=== PATIENT | female | born 1970 | race Hispanic/Latino ===

== ENCOUNTER 2017-11-14 15:44 | Emergency (ER) | payer MEDICAID, OTHER ==
[2017-11-14 16:02] VITALS: RESP 18
[2017-11-14 17:09] LABS: BASO # 0.1 K/uL (0.0-0.2); BASO % 1.1 % (0.0-2.0); EOS # 0.1 K/uL (0.0-0.7); EOS % 0.7 % (0.0-4.0); HEMOGLOBIN 15.9 g/dL (12.0-16.0); LYMPH # 3.3 K/uL (1.0-4.3); LYMPH % 25.1 % (20.0-40.0); MEAN CORPUSCULAR HEMOGLOBIN 29.7 pg (27.0-31.0); MEAN CORPUSCULAR HGB CONC 33.4 g/dL (33.0-37.0); MEAN PLATELET VOLUME 8.5 fl (7.2-11.7); MONO # 1.4 K/uL (0.0-0.8); NEUT # 8.1 K/uL (1.8-7.0); NEUT % 62.1 % (50.0-75.0); NRBC % 0.1 % (0.0-0.0); RBC 5.33 Mil/uL (3.80-5.20)
[2017-11-14 17:17] LABS: INR 2.1 (0.9-1.2); PROTHROMBIN TIME 23.8 Seconds (9.8-13.1)
[2017-11-14 17:24] LABS: ALBUMIN 4.6 g/dL (3.5-5.0); ALT/SGPT 21 U/L (9-52); AST/SGOT 23 U/L (14-36); BLOOD UREA NITROGEN 14 mg/dl (7-17); GFR AFRICAN-AMERICAN > 60; GFR NON-AFRICAN AMERICAN 54
[2017-11-14] MEDS ORDERED: K-Lyte 25meq EF Tab PO ONE ×2 (17:34→17:46)
--- NOTE | 2017-11-14 17:47 | ED PDOC ---
- Laboratory Results Result Diagrams: 11/14/17 17:00 11/14/17 17:00 - ECG O2 Sat by Pulse Oximetry: 99 (RA) Pulse Ox Interpretation: Normal Medical Decision Making Medical Decision Making: Initial Impression: Anxiety; ; Heroin abuse Initial Plan: * Alcohol serum * BETA-HCG * CMP * Drug screen, urine * Magnesium * Phosphorous * TSH * Troponin I * Crisis evaluation * Urine * Urine dipstick * CBC * PTT * PT Time: 1734 --EKG: ventricular pace rhythm; tachycardic. --Urine is positive for . --Klor-Con/EF 50meq PO and US OB transvaginal additionally ordered. Scribe Attestation: Documented by Mary Kay Wallace, acting as a scribe for Jadyn Hunter MD. Provider Scribe Attestation: All medical record entries made by the Scribe were at my direction and personally dictated by me. I have reviewed the chart and agree that the record accurately reflects my personal performance of the history, physical exam, medical decision making, and the department course for this patient. I have also personally directed, reviewed, and agree with the discharge instructions and disposition. Disposition - Disposition Forms: [employer] (Green[place]ic)
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
--- NOTE | 2017-11-14 18:20 | US ---
Indication: Early weakness Comparison: None available Technique: Ob transvaginal ultrasound Findings: The uterus measures approximately 5.0 x 3.7 x 4.1 cm. Retroverted. Cervix length measures approximately 3.0 cm. Endometrial thickness measures approximately 0.5 cm. No evidence of intrauterine gestational sac. The right ovary measures 1.8 x 1.2 x 1.2 cm. The left ovary measures 2.4 x 1.2 x 2.3 cm and contains 1.2 cm dominant follicle/cyst. Blood flow was demonstrated to both ovaries. Impression: No evidence of intrauterine gestational sac. If indeed the patient is based on serum beta HCG values, the sonographic findings represent either: Very early IUP; embryonic demise; ectopic gestation. Follow-up with serial quantitative serum beta HCG measurements and post OBGYN follow-up as clinically indicated, since ectopic gestation cannot be excluded based only on sonographic findings.
[2017-11-14 18:41] LABS: PHENCYCLIDINE, UR NEGATIVE (NEGATIVE)
[2017-11-14 18:43] LABS: BENZODIAZEPINES, UR NEGATIVE (NEGATIVE); OPIATES, UR POSITIVE (NEGATIVE)
[2017-11-14 18:44] LABS: BARBITURATES, UR NEGATIVE (NEGATIVE)
[2017-11-14 19:34] VITALS: BP 117/68; PULSE 89; TEMP 98.1
[2017-11-14 20:50] VITALS: O2SAT 99
== END 2017-11-14 19:35 | disposition home or self-care (01) ==
LOC: H.ER 15:44
DX: E87.6 Hypokalemia (principal); Z33.1 Pregnant state, incidental; Z86.59 Personal history of other mental and behavioral disorders; F17.200 Nicotine dependence, unspecified, uncomplicated; I11.0 Hypertensive heart disease with heart failure; I50.9 Heart failure, unspecified; Z95.0 Presence of cardiac pacemaker; J45.909 Unspecified asthma, uncomplicated

== ENCOUNTER 2018-09-23 17:24 | Inpatient (IN) | payer MEDICAID, OTHER ==
[2018-09-23] MEDS ORDERED: Sodium Chloride 0.9% 1,000 ML IV STA (17:48)
[2018-09-23] MEDS ORDERED: Iohexol 240 (50 ml) PO ONE (17:49)
--- NOTE | 2018-09-23 17:55 | ED PDOC ---
HPI: Abdomen Time Seen by Provider: 09/23/18 17:31 Chief Complaint (Nursing): Abdominal Pain Chief Complaint (Provider): Abd pain History Per: Patient History/Exam Limitations: no limitations Onset/Duration Of Symptoms: Days (today) Additional Complaint(s): Pt. with abd pain all over. Nausea, vomit. Had similar in the past with a blockage. Needed surgery for it. No chest pain, dyspnea, weakness. No dysuria. No fever. Past Medical History Reviewed: Nursing Documentation, Vital Signs Vital Signs: Last Vital Signs Temp 97.5 F L 09/23/18 17:31 Pulse 74 09/23/18 17:31 Resp 18 09/23/18 17:31 BP 150/99 H 09/23/18 17:31 Pulse Ox 98 09/23/18 17:31 - Medical History PMH: Asthma, Atrial Fibrillation, CHF, Depression, Hepatitis, HTN, Seizures Denies: Diabetes, HIV, Sexually Transmitted Disease - Surgical History Surgical History: Pacemaker - Family History Family History: Denies: Unknown Family Hx - Home Medications Home Medications: Ambulatory Orders Medication Instructions Recorded Azithromycin [Zithromax] 250 mg PO DAILY #8 tab 05/23/16 Prednisone [Deltasone] 40 mg PO DAILY #8 tablet 05/23/16 - Allergies Allergies/Adverse Reactions: Allergies Allergy/AdvReac Type Severity Reaction Status Date / Time No Known Allergies Allergy Verified 09/23/18 17:31 Review of Systems ROS Statement: Except As Marked, All Systems Reviewed And Found Negative Gastrointestinal: Positive for: Nausea, Vomiting, Abdominal Pain Physical Exam - Reviewed Nursing Documentation Reviewed: Yes Vital Signs Reviewed: Yes - Physical Exam Appears: Positive for: Non-toxic, No Acute Distress Head Exam: Positive for: ATRAUMATIC, NORMAL INSPECTION, NORMOCEPHALIC Skin: Positive for: Normal Color, Warm, DRY Eye Exam: Positive for: EOMI, Normal appearance, PERRL ENT: Positive for: Normal ENT Inspection Neck: Positive for: Normal, Painless ROM Cardiovascular/Chest: Positive for: Regular Rate, Rhythm Respiratory: Positive for: CNT, Normal Breath Sounds Gastrointestinal/Abdominal: Positive for: Soft, Tenderness (mild diffuse) Back: Positive for: Normal Inspection. Negative for: L CVA Tenderness, R CVA Tenderness Extremity: Positive for: Normal ROM. Negative for: Tenderness Neurologic/Psych: Positive for: Alert, Oriented - Laboratory Results Result Diagrams: 09/23/18 18:40 09/23/18 18:40 Lab Results: 12.8 wbc - ECG O2 Sat by Pulse Oximetry: 98 Pulse Ox Interpretation: Normal - Progress ED Course And Treament: IMPRESSION: 1. Findings suspicious for the presence of inflammatory bowel disease; possibly Crohn's or ulcerative colitis. Consideration could be given to correlation with lower endoscopic evaluation. 2. An apparent transition zone measuring 3.7 cm in length is identified in the posterior left abdomen with possible evolving early borderline mechanical small intestinal obstruction as described above. Serial abdominal x-ray evaluation could be considered. 3. An umbilical and infraumbilical small ventral hernias are present which each contain fat. 4. Status post cholecystectomy. 214: Stable. AAOx3. Spoke with Dr. Ayon. Will admit. Spoke with surgery resident. Will consult. Disposition - Clinical Impression Clinical Impression: Bowel obstruction, Colitis Counseled Patient/Family Regarding: Studies Performed, Diagnosis - Disposition Disposition Time: 21:52 Condition: STABLE - Pt Status Changed To: Hospital Disposition Of: Inpatient - Admit Certification Admit to Inpatient:: After my assessment, the patient will require hospitalizati on for at least two midnights. This is because of the severity of symptoms shown, intensity of services needed, and/or the medical risk in this patient being treated as an outpatient. - POA Present On Arrival: None
[2018-09-23] MEDS ORDERED: Iohexol 240 (50 ml) ONE (18:05)
[2018-09-23] MEDS ORDERED: Morphine 4 MG/ML VIAL ONE (18:05)
[2018-09-23] MEDS ORDERED: Morphine 4 MG/ML VIAL IV ONE (18:15)
[2018-09-23 19:32] LABS: BASO % 0.4 % (0.0-2.0); EOS % 0.1 % (0.0-4.0); HEMOGLOBIN 16.8 g/dL (12.0-16.0); LYMPH # 1.1 K/uL (1.0-4.3); LYMPH % 8.3 % (20.0-40.0); MEAN CELL VOLUME 90.8 fl (81.0-99.0); MEAN CORPUSCULAR HEMOGLOBIN 30.1 pg (27.0-31.0); MEAN CORPUSCULAR HGB CONC 33.1 g/dL (33.0-37.0); MONO # 0.5 K/uL (0.0-0.8); MONO % 3.9 % (0.0-10.0); NEUT # 11.2 K/uL (1.8-7.0); NEUT % 87.3 % (50.0-75.0); NRBC % 0.1 % (0.0-0.0); PLATELET COUNT 253 K/uL (130-400); RBC 5.58 Mil/uL (3.80-5.20); RED CELL DISTRIBUTION WIDTH 14.1 % (11.5-14.5); WHITE BLOOD COUNT 12.8 K/uL (4.8-10.8)
[2018-09-23 19:34] LABS: INR 2.2; PROTHROMBIN TIME 25.4 Seconds (9.8-13.1)
[2018-09-23 19:37] LABS: PARTIAL THROMBOPLASTIN TIME 49.4 Seconds (25.6-37.1)
[2018-09-23 19:39] LABS: ALBUMIN 4.5 g/dL (3.5-5.0); ALT/SGPT 18 U/L (9-52); AST/SGOT 29 U/L (14-36); BLOOD UREA NITROGEN 16 mg/dl (7-17); CALCIUM 10.1 mg/dL (8.4-10.2); GFR NON-AFRICAN AMERICAN > 60; LIPASE 50 U/L (23-300)
[2018-09-23 20:24] LABS: BANDS 3 % (0-2); LYMPHOCYTE 7 % (20-50); MONOCYTE 5 % (0-10); NEUTROPHIL 85 % (42-75); TOTAL CELLS COUNTED 100
[2018-09-23 20:25] LABS: PLATELET ESTIMATE NORMAL (NORMAL); TEARDROP CELLS SLIGHT
[2018-09-23] MEDS ORDERED: Iohexol 300 100 ML IJ ONE (21:01)
[2018-09-23] MEDS ORDERED: Sodium Chloride 0.9% 50 ML IV ONE (21:02)
[2018-09-23] MEDS ORDERED: metroNIDAZOLE 500mg/100ml NS 100 ML IV STA (21:46)
[2018-09-23] MEDS ORDERED: cefTRIAXone (Rocephin) 1 gm Inj IV ONE (21:46)
[2018-09-23] MEDS ORDERED: cefTRIAXone (Rocephin) 1 gm Inj ONE (21:55)
[2018-09-23] MEDS ORDERED: metroNIDAZOLE 500mg/100ml NS 100 ML IVPB ONE (21:56)
[2018-09-23] MEDS ORDERED: Sodium Chloride 0.9% 500 ML IV STA (21:57)
--- NOTE | 2018-09-23 22:56 | CP.PCM.CON ---
History of Present Illness - History of Present Illness History of Present Illness: General surgery consult note for Dr. Barrios Consulted for: early SBO Pt is a 47F with extensive PMH of afib on warfarin and plavix, heart failure, hepatitis C, HTN, COPD and PSH including exploratory laparotomy for SBO, incisional hernia repair with mesh, and cholecystectomy. Pt came in with diffuse abdominal pain for 2 weeks and nausea and vomiting for 1 day. Patient state that the emesis is not bloody but bilious, and the pain is a cramping sensation. Patient states that last bowel movement was a few hours ago and was soft but normal color, no blood and she is passing flatus. Patient denies any melena, hematochezia, dysuria, hematuria, chest pain, SOB, or fevers but does admit to chills. Pt also complains of lower back pain. Patient denies any sick contacts, travel outside the country, or new foods. Patient last took plavix and warfarin yesterday. PMH: afib on warfarin and plavix, heart failure, hepatitis C, HTN, COPD, "heart aneurysm" PSH: exploratory laparotomy for SBO, incisional hernia repair with mesh, defib rilator insertion x2, pericardial window, and cholecystectomy ALL: NKDA Social: smoked 1PPD for 10 years, denies ETOH use, prior IV heroin use quit 6 months ago Review of Systems - Review of Systems All systems: reviewed and no additional remarkable complaints except (as per HPI) Past Patient History - Past Medical History & Family History Past Medical History?: Yes Past Family History: Reviewed and not pertinent - Past Social History Smoking Status: Former Smoker Alcohol: None Drugs: Opiates (IV heroin--quit 03/2018) Home Situation {Lives}: With Family - CARDIAC Hx Atrial Fibrillation: Yes Hx Congestive Heart Failure: Yes Hx Hypertension: Yes Hx Pacemaker: Yes - PULMONARY Hx Asthma: Yes Hx Chronic Obstructive Pulmonary Disease (COPD): Yes - NEUROLOGICAL Hx Seizures: Yes - HEMATOLOGICAL/ONCOLOGICAL Hx Hepatitis C: Yes Hx Human Immunodeficiency Virus (HIV): No - MUSCULOSKELETAL/RHEUMATOLOGICAL Hx Musculoskeletal Disorders: No - GASTROINTESTINAL Hx Gall Bladder Disease: Yes (s/p cholecystectomy) Other/Comment: small bowel obstruction s/p exploratory laparotomy - GENITOURINARY/GYNECOLOGICAL Hx Sexually Transmitted Disorders: No - PSYCHIATRIC Hx Depression: Yes - SURGICAL HISTORY Hx Surgeries: Yes Hx Cholecystectomy: Yes Hx Herniorrhaphy: Yes (abdominal incisional hernia repair) Other/Comment: pericardial window, insertion of defibrillator x2, exploratory laparotomy for SBO - ANESTHESIA Hx Anesthesia: Yes Hx Anesthesia Reactions: No Meds Allergies/Adverse Reactions: Allergies Allergy/AdvReac Type Severity Reaction Status Date / Time No Known Allergies Allergy Verified 09/23/18 17:31 - Medications Medications: Current Medications Sodium Chloride (Sodium Chloride 0.9%) 500 mls @ 100 mls/hr IV .Q5H STA Stop: 09/24/18 02:56 Last Admin: 09/23/18 22:02 Dose: 100 mls/hr Physical Exam - Constitutional Appears: Well, Non-toxic, No Acute Distress - Head Exam Head Exam: ATRAUMATIC, NORMOCEPHALIC - Eye Exam Eye Exam: Normal appearance. absent: Conjunctival injection, Scleral icterus - ENT Exam ENT Exam: Mucous Membranes Dry, Normal Oropharynx - Respiratory Exam Respiratory Exam: NORMAL BREATHING PATTERN. absent: Accessory Muscle Use, Respiratory Distress - Cardiovascular Exam Cardiovascular Exam: RRR - GI/Abdominal Exam GI & Abdominal Exam: Distended (mild distention), Soft. absent: Rebound, Rigid, Tenderness - Extremities Exam Extremities exam: Positive for: pedal pulses present. Negative for: calf tenderness, tenderness - Back Exam Back exam: absent: CVA tenderness (L), CVA tenderness (R) - Neurological Exam Neurological exam: Alert, Oriented x3 - Psychiatric Exam Psychiatric exam: Normal Affect, Normal Mood - Skin Skin Exam: Dry, Normal Color, Warm Results - Vital Signs Recent Vital Signs: Last Vital Signs Temp 97.5 F L 09/23/18 17:31 Pulse 74 09/23/18 17:31 Resp 18 09/23/18 17:31 BP 150/99 H 09/23/18 17:31 Pulse Ox 98 09/23/18 21:52 - Labs Result Diagrams: 09/23/18 18:40 09/23/18 18:40 Labs: Laboratory Results - last 24 hr 09/23/18 09/23/18 09/23/18 18:40 18:40 18:40 WBC 12.8 H RBC 5.58 H Hgb 16.8 H Hct 50.7 H MCV 90.8 MCH 30.1 MCHC 33.1 RDW 14.1 Plt Count 253 MPV 9.0 Neut % (Auto) 87.3 H Lymph % (Auto) 8.3 L [place] % (Auto) 3.9 Eos % (Auto) 0.1 Baso % (Auto) 0.4 Neut # (Auto) 11.2 H Lymph # (Auto) 1.1 [place] # (Auto) 0.5 Eos # (Auto) 0.0 Baso # (Auto) 0.0 Neutrophils % (Manual) 85 H Band Neutrophils % 3 H Lymphocytes % (Manual) 7 L Monocytes % (Manual) 5 Platelet Estimate Normal Tear Drop Cells Slight PT 25.4 H INR 2.2 APTT 49.4 H Sodium 141 Potassium 3.9 Chloride 95 L Carbon Dioxide 32 H Anion Gap 18 BUN 16 Creatinine 0.8 Est GFR ( Amer) > 60 Est GFR (Non-Af Amer) > 60 Random Glucose 115 H Calcium 10.1 Total Bilirubin 0.7 AST 29 ALT 18 Alkaline Phosphatase 130 H Total Protein 9.1 H Albumin 4.5 Globulin 4.6 H Albumin/Globulin Ratio 1.0 Lipase 50 - Imaging and Cardiology CT scan - abdomen Status: Image reviewed by me, Report reviewed by me CT scan - pelvis Status: Image reviewed by me, Report reviewed by me Assessment & Plan - Assessment and Plan (Free Text) Assessment: 47F with PSH of exploratory laparotomy for SBO, cholecystectomy, and subsequent incisional hernia repair with mesh with nausea and vomiting, CT with possible early SBO Plan: NPO Insert NGT if patient has more nausea and vomiting--patient refusing at this time IVF IV antibiotics per primary PRN pain and nausea medication Hold warfarin and plavix until need for surgical intervention is ruled out--may give therapeutic lovenox or heparin Trend labs--replete electrolytes as needed Encourage ambulation, incentive spirometer, and SCD use Will monitor closely Discussed with Dr. Barrios, who agrees with above Evelina Sepulveda, PGY2
[2018-09-23] MEDS ORDERED: Potassium Ch 20mEq in D5-1/2NS 1,000 ML IV SCH (23:00)
--- NOTE | 2018-09-23 23:41 | CP.PCM.HP ---
<Steven Loya - Last Filed: 09/23/18 23:07> History of Present Illness - History of Present Illness History of Present Illness: 47 y/o F with a PMHx of HTN, Atrial Fibrillation, CHF, hepatitis C, IVDA and SBO presented to ED complaining of generalized abdominal pain that began 2 weeks ago and aggravated yesterday. Pain is described as cramping, severe, constant and progressively aggravated the most last night. Pt also reports nausea and vomiting since this morning, >5 episodes of bilious non-bloody vomiting; pt also had loose stools since this morning, ~5 episodes, non-bloody, non-mucous. Pt is passing gasses, last meal was last night. NO recent travel and NO ill contact. Pt reports similar episode in the past due to intestine blockage that required surgery. Pt denies fever, visual disturbances, recent trauma, dizziness, chest pain, SOB, rash. LMP 1 year ago. PCP: none Engraving Operator: Dr Lillian Smith (Next Appt on 09/28/18) NKDA Medications: Plavix, Warfarin, Torpol, Lasix, Methadone PMHx: HTN, CHF, Afib, IVDA, Hepatitis C, on [facility] PSHX: hernia repair with mesh, defibrillator placement x2, pericardial window, ?exploratory laparotomy for SBO. (As per CT abdomen: S/P Cholecystectpmy) FHx: Mother has lung cancer. Brother and mother have had open heart surgeries. SHx: Pt smokes 1ppd of cigarettes daily for more than 10 years. NO alcohol. IV Heroin use, last use was >6 months ago. At ED: --CBC showed a WBC of 12.8-high, Hgb 16.8-high. --Coag profile: PT/INR 25.4/2.2-therapeutic range, aPTT 49.4-high. --CMP: bicarbonate 32, Alk phos 130-high --Serum Lipase negative. --CT Abdomen: suspicious for IBD; possibly Crohn's vs ulcerative colitis; early borderline mechanical small intestinal obstruction in posterior left abdomen. An umbilical and infraumbilical small ventral hernias containing fat. S/P Cholecystectomy. --Morphine 4mg, Zofran 4mg, Ceftriaxone 1gr, and Metronidazole were administered. Present on Admission - Present on Admission Any Indicators Present on Admission: No Review of Systems - Constitutional Constitutional: absent: Fever - EENT Nose/Mouth/Throat: absent: Nasal Congestion, Sore Throat, Neck Pain, Neck Mass - Cardiovascular Cardiovascular: absent: Chest Pain, Chest Pain at Rest, Dyspnea, Leg Edema - Respiratory Respiratory: absent: Cough, Dyspnea, Hemoptysis, Wheezing - Gastrointestinal Gastrointestinal: Abdominal Pain, Diarrhea, Nausea, Vomiting. absent: Dysphagia, Hematemesis, Odynophagia - Genitourinary Genitourinary: absent: Dysuria, Hematuria, Urinary Frequency Past Patient History - Past Medical History & Family History Past Medical History?: Yes Past Family History: Reviewed and not pertinent - Past Social History Smoking Status: Former Smoker Alcohol: None Drugs: Opiates (IV heroin--quit 03/2018) Home Situation {Lives}: With Family - CARDIAC Hx Atrial Fibrillation: Yes Hx Congestive Heart Failure: Yes Hx Hypertension: Yes Hx Pacemaker: Yes - PULMONARY Hx Asthma: Yes Hx Chronic Obstructive Pulmonary Disease (COPD): Yes - NEUROLOGICAL Hx Seizures: Yes - HEMATOLOGICAL/ONCOLOGICAL Hx Hepatitis C: Yes Hx Human Immunodeficiency Virus (HIV): No - MUSCULOSKELETAL/RHEUMATOLOGICAL Hx Musculoskeletal Disorders: No - GASTROINTESTINAL Hx Gall Bladder Disease: Yes (s/p cholecystectomy) Other/Comment: small bowel obstruction s/p exploratory laparotomy - GENITOURINARY/GYNECOLOGICAL Hx Sexually Transmitted Disorders: No - PSYCHIATRIC Hx Depression: Yes - SURGICAL HISTORY Hx Surgeries: Yes Hx Cholecystectomy: Yes Hx Herniorrhaphy: Yes (abdominal incisional hernia repair) Other/Comment: pericardial window, insertion of defibrillator x2, exploratory laparotomy for SBO - ANESTHESIA Hx Anesthesia: Yes Hx Anesthesia Reactions: No Meds Allergies/Adverse Reactions: Allergies Allergy/AdvReac Type Severity Reaction Status Date / Time No Known Allergies Allergy Verified 09/23/18 17:31 Physical Exam - Constitutional Appears: No Acute Distress - Head Exam Head Exam: ATRAUMATIC, NORMAL INSPECTION - Eye Exam Eye Exam: EOMI - ENT Exam ENT Exam: Mucous Membranes Moist - Neck Exam Neck exam: Positive for: Full Rom, Normal Inspection - Respiratory Exam Respiratory Exam: NORMAL BREATHING PATTERN. absent: Rhonchi, Wheezes, Respiratory Distress - Cardiovascular Exam Cardiovascular Exam: REGULAR RHYTHM, +S1, +S2 - GI/Abdominal Exam GI & Abdominal Exam: Distended (mild), Normal Bowel Sounds, Soft. absent: Guarding, Rebound, Rigid, Tenderness - Extremities Exam Extremities exam: Positive for: full ROM. Negative for: calf tenderness, pedal edema - Back Exam Back exam: absent: CVA tenderness (L), CVA tenderness (R) - Neurological Exam Neurological exam: Alert, Oriented x3 Results - Vital Signs Recent Vital Signs: Last Vital Signs Temp 97.5 F L 09/23/18 17:31 Pulse 74 09/23/18 17:31 Resp 18 09/23/18 17:31 BP 150/99 H 09/23/18 17:31 Pulse Ox 98 09/23/18 21:52 - Labs Result Diagrams: 09/23/18 18:40 09/23/18 18:40 Labs: Laboratory Results - last 24 hr 09/23/18 09/23/18 09/23/18 18:40 18:40 18:40 WBC 12.8 H RBC 5.58 H Hgb 16.8 H Hct 50.7 H MCV 90.8 MCH 30.1 MCHC 33.1 RDW 14.1 Plt Count 253 MPV 9.0 Neut % (Auto) 87.3 H Lymph % (Auto) 8.3 L [place] % (Auto) 3.9 Eos % (Auto) 0.1 Baso % (Auto) 0.4 Neut # (Auto) 11.2 H Lymph # (Auto) 1.1 [place] # (Auto) 0.5 Eos # (Auto) 0.0 Baso # (Auto) 0.0 Neutrophils % (Manual) 85 H Band Neutrophils % 3 H Lymphocytes % (Manual) 7 L Monocytes % (Manual) 5 Platelet Estimate Normal Tear Drop Cells Slight PT 25.4 H INR 2.2 APTT 49.4 H Sodium 141 Potassium 3.9 Chloride 95 L Carbon Dioxide 32 H Anion Gap 18 BUN 16 Creatinine 0.8 Est GFR ( Amer) > 60 Est GFR (Non-Af Amer) > 60 Random Glucose 115 H Calcium 10.1 Total Bilirubin 0.7 AST 29 ALT 18 Alkaline Phosphatase 130 H Total Protein 9.1 H Albumin 4.5 Globulin 4.6 H Albumin/Globulin Ratio 1.0 Lipase 50 Assessment & Plan - Assessment and Plan (Free Text) Assessment: 47 y/o F with a PMHx of HTN, Atrial Fibrillation on Warfarin and Plavix, CHF, hepatitis C, IVDA and SBO admitted for evaluation and management of early small bowel obstruction vs colitis. --CT Abdomen: suspicious for IBD; possibly Crohn's vs ulcerative colitis; early borderline mechanical small intestinal obstruction in posterior left abdomen. An umbilical and infraumbilical small ventral hernias containing fat. S/P Cholecystectomy. PLAN: >Early SBO/Colitis/ Inflammatory Bowel disease --Afebrile, stable --Increased WBC. --NPO, IV fluids: 20mEQ KCl-NS at 125 mL/hr. --Zofran 4mg IV PRN --Toradol 15mg and 30mg for pain management. --General Surgery consult, Dr Barrios. --Empiric antibiotics: Ciprofloxacin IV and IV Metronidazole >Atrial Fibrillation --Pacemaker in place --Electrocardiogram ordered --On Warfarin and Plavix --Hold PO medications for now. >Chronic Heart Failure --Last Echocardiogram 8 months ago, unremarkble results as per patient. --Hold PO medications. >Hx of heroin use --On [facility]. >Hepatitis C --Currently not on treatment >Essential Hypertension --NPO --PO medications on hold. >DVT Prophylaxis --SCDs for now --On Warfarin and Plavix. - Date & Time Date: 09/24/18 Time: 23:00 <Velma Ayon - Last Filed: 09/24/18 04:40> Results - Vital Signs Recent Vital Signs: Last Vital Signs Temp 98 F 09/24/18 00:32 Pulse 69 09/24/18 00:32 Resp 20 09/24/18 00:32 BP 112/77 09/24/18 00:32 Pulse Ox 90 L 09/24/18 00:32 - Labs Result Diagrams: 09/23/18 18:40 09/23/18 18:40 Labs: Laboratory Results - last 24 hr 09/23/18 09/23/18 09/23/18 18:40 18:40 18:40 WBC 12.8 H RBC 5.58 H Hgb 16.8 H Hct 50.7 H MCV 90.8 MCH 30.1 MCHC 33.1 RDW 14.1 Plt Count 253 MPV 9.0 Neut % (Auto) 87.3 H Lymph % (Auto) 8.3 L [place] % (Auto) 3.9 Eos % (Auto) 0.1 Baso % (Auto) 0.4 Neut # (Auto) 11.2 H Lymph # (Auto) 1.1 [place] # (Auto) 0.5 Eos # (Auto) 0.0 Baso # (Auto) 0.0 Neutrophils % (Manual) 85 H Band Neutrophils % 3 H Lymphocytes % (Manual) 7 L Monocytes % (Manual) 5 Platelet Estimate Normal Tear Drop Cells Slight PT 25.4 H INR 2.2 APTT 49.4 H Sodium 141 Potassium 3.9 Chloride 95 L Carbon Dioxide 32 H Anion Gap 18 BUN 16 Creatinine 0.8 Est GFR ( Amer) > 60 Est GFR (Non-Af Amer) > 60 Random Glucose 115 H Calcium 10.1 Total Bilirubin 0.7 AST 29 ALT 18 Alkaline Phosphatase 130 H Total Protein 9.1 H Albumin 4.5 Globulin 4.6 H Albumin/Globulin Ratio 1.0 Lipase 50 Attending/Attestation - Attestation I have personally seen and examined this patient.: Yes I have fully participated in the care of the patient.: Yes I have reviewed all pertinent clinical information: Yes Notes (Text): 09/24/18 04:39 47F PMH IVDA, CHF, S/P PPM, AFIB on Warfarin, Hepatitis, hx SBO admitted for generalized cramping abd pain, NBNB emesis x5 with loose stools. Same pain as last time she had an SBO that required sx. CT showed SBO and colitis/UC. Surgery consulted. NPO, maintenance fluids, Cipro/Flagyl for colitis. Agree with findings and plan as above.
[2018-09-24] MEDS ORDERED: Potassium Ch 20mEq in D5-1/2NS 1,000 ML IV SCH (00:15)
[2018-09-24] MEDS: Potassium Chl 20 mEq in NS 1,000 ML IV SCH ×3 (00:48→15:59)
[2018-09-24] MEDS ORDERED: metroNIDAZOLE 500mg/100ml NS 100 ML IVPB SCH (01:00)
[2018-09-24] MEDS: metroNIDAZOLE 500mg/100ml NS 100 ML IVPB SCH ×2 (04:56→15:39)
[2018-09-24 06:58] LABS: ALBUMIN 4.1 g/dL (3.5-5.0); ALT/SGPT 15 U/L (9-52); AST/SGOT 26 U/L (14-36); BLOOD UREA NITROGEN 18 mg/dl (7-17); CALCIUM 9.2 mg/dL (8.4-10.2); GFR NON-AFRICAN AMERICAN > 60
[2018-09-24 07:16] LABS: HEMOGLOBIN 16.2 g/dL (12.0-16.0); MEAN CELL VOLUME 97.5 fl (81.0-99.0); MEAN CORPUSCULAR HEMOGLOBIN 30.5 pg (27.0-31.0); MEAN CORPUSCULAR HGB CONC 31.3 g/dL (33.0-37.0); RBC 5.32 Mil/uL (3.80-5.20); RED CELL DISTRIBUTION WIDTH 14.7 % (11.5-14.5); WHITE BLOOD COUNT 15.6 K/uL (4.8-10.8)
--- NOTE | 2018-09-24 08:54 | CP.PCM.PN ---
Subjective - Date & Time of Evaluation Date of Evaluation: 09/24/18 Time of Evaluation: 08:51 - Subjective Subjective: SURGERY NOTE FOR DR. ANDERSON 47F seen and examined at bedside. Patient states pain is improving, denies nausea or vomiting. Denies fevers or chills. States she is passing gas, denies bowel movement. Objective - Vital Signs/Intake and Output Vital Signs (last 24 hours): Temp Pulse Resp BP Pulse Ox 98 F 69 20 112/77 90 L 09/24/18 00:32 09/24/18 00:32 09/24/18 00:32 09/24/18 00:32 09/24/18 00:32 - Medications Medications: Current Medications Famotidine (Pepcid) 20 mg IVP DAILY NICOLASA Ciprofloxacin (Cipro 400mg/200ml Dsw) 400 mg in 200 mls @ 200 mls/hr IVPB Q12 NICOLASA; Protocol Potassium Chloride/Sodium Chloride (Potassium Chl 20 Meq In Ns) 1,000 mls @ 125 mls/hr IV .Q8H NICOLASA Stop: 09/24/18 23:59 Last Admin: 09/24/18 00:48 Dose: 125 mls/hr Metronidazole (Flagyl 500mg/100ml Ns) 100 mls @ 100 mls/hr IVPB Q8H NICOLASA; Protocol Last Admin: 09/24/18 04:56 Dose: 100 mls/hr Ketorolac Tromethamine (Toradol) 30 mg IM Q6 PRN PRN Reason: Pain, moderate (4-7) Last Admin: 09/24/18 07:03 Dose: 30 mg Ketorolac Tromethamine (Toradol) 15 mg IVP Q6 PRN PRN Reason: Pain, Mild (1-3) Ondansetron HCl (Zofran Inj) 4 mg IVP Q4 PRN PRN Reason: Nausea/Vomiting Last Admin: 09/24/18 07:04 Dose: 4 mg - Labs Labs: 09/24/18 06:32 09/24/18 06:32 PT 25.4 Seconds (9.8-13.1) H 09/23/18 18:40 INR 2.2 09/23/18 18:40 APTT 49.4 Seconds (25.6-37.1) H 09/23/18 18:40 - Constitutional Appears: Non-toxic, No Acute Distress - Respiratory Exam Respiratory Exam: Clear to Ausculation Bilateral, NORMAL BREATHING PATTERN - Cardiovascular Exam Cardiovascular Exam: REGULAR RHYTHM, +S1, +S2 - GI/Abdominal Exam GI & Abdominal Exam: Distended, Soft, Tenderness. absent: Firm, Guarding, Rigid, Rebound - Extremities Exam Extremities Exam: absent: Pedal Edema, Tenderness - Neurological Exam Neurological Exam: Alert, Awake Assessment and Plan - Assessment and Plan (Free Text) Assessment: 47F with partial SBO Plan: NPO IVF Serial abdominal exams F/u Abdominal X-ray Further recs discuss with Dr. Denis Hyman, PGY3
[2018-09-24] MEDS ORDERED: Ciprofloxacin 400mg/200ml D5W 400 MG/200 ML BAG IVPB SCH (09:00)
--- NOTE | 2018-09-24 09:16 | CARD ---
APPROVED REPORT Date of service: 09/23/2018 EKG Measurement Heart [id number] <Conclusion> Atrial-sensed ventricular-paced rhythm with occasional premature ventricular complexes Biventricular pacemaker detected Abnormal ECG
--- NOTE | 2018-09-24 10:00 | CP.PCM.PN ---
Subjective - Date & Time of Evaluation Date of Evaluation: 09/24/18 Time of Evaluation: 09:56 - Subjective Subjective: 47 y/o F patient seen and examined at the bedside for SBO. Paatient was sleeping comfortably in bed and NAD. Patient is AAO X 3. Patient states that she still didn't have any bowel motion today but she passes any gas. She denies any ove rnight nausea or vomiting. She denies any overnight acute events. She denies any overnight abdominal pain. SHe denies any F/C/CP or SOB. Objective - Vital Signs/Intake and Output Vital Signs (last 24 hours): Temp Pulse Resp BP Pulse Ox 98.7 F 69 18 107/72 93 L 09/24/18 09:00 09/24/18 09:00 09/24/18 09:00 09/24/18 09:00 09/24/18 09:00 - Medications Medications: Current Medications Famotidine (Pepcid) 20 mg IVP DAILY NICOLASA Ciprofloxacin (Cipro 400mg/200ml Dsw) 400 mg in 200 mls @ 200 mls/hr IVPB Q12 NICOLASA; Protocol Potassium Chloride/Sodium Chloride (Potassium Chl 20 Meq In Ns) 1,000 mls @ 125 mls/hr IV .Q8H NICOLASA Stop: 09/24/18 23:59 Last Admin: 09/24/18 00:48 Dose: 125 mls/hr Metronidazole (Flagyl 500mg/100ml Ns) 100 mls @ 100 mls/hr IVPB Q8H NICOLASA; Protocol Last Admin: 09/24/18 04:56 Dose: 100 mls/hr Ketorolac Tromethamine (Toradol) 30 mg IM Q6 PRN PRN Reason: Pain, moderate (4-7) Last Admin: 09/24/18 07:03 Dose: 30 mg Ketorolac Tromethamine (Toradol) 15 mg IVP Q6 PRN PRN Reason: Pain, Mild (1-3) Ondansetron HCl (Zofran Inj) 4 mg IVP Q4 PRN PRN Reason: Nausea/Vomiting Last Admin: 09/24/18 07:04 Dose: 4 mg - Labs Labs: 09/24/18 06:32 09/24/18 06:32 PT 25.4 Seconds (9.8-13.1) H 09/23/18 18:40 INR 2.2 09/23/18 18:40 APTT 49.4 Seconds (25.6-37.1) H 09/23/18 18:40 - Constitutional Appears: Non-toxic, No Acute Distress - Head Exam Head Exam: ATRAUMATIC, NORMOCEPHALIC - Eye Exam Eye Exam: EOMI, Normal appearance, PERRL Pupil Exam: NORMAL ACCOMODATION, PERRL - ENT Exam ENT Exam: Mucous Membranes Moist, Normal Exam - Neck Exam Neck Exam: Full ROM, Normal Inspection - Respiratory Exam Respiratory Exam: Clear to Ausculation Bilateral, NORMAL BREATHING PATTERN - Cardiovascular Exam Cardiovascular Exam: REGULAR RHYTHM, +S1, +S2 - GI/Abdominal Exam GI & Abdominal Exam: Distended, Soft, Hypoactive Bowel Sounds - Extremities Exam Extremities Exam: Normal Capillary Refill - Back Exam Back Exam: NORMAL INSPECTION - Neurological Exam Neurological Exam: Alert, Awake, Oriented x3 Neuro motor strength exam: Left Upper Extremity: 5, Right Upper Extremity: 5, Left Lower Extremity: 5, Right Lower Extremity: 5 - Psychiatric Exam Psychiatric exam: Normal Affect, Normal Mood - Skin Skin Exam: Dry, Intact, Normal Color, Warm Assessment and Plan - Assessment and Plan (Free Text) Assessment: 47 y/o F with a PMHx of HTN, Atrial Fibrillation on Warfarin and Plavix, CHF, hepatitis C, IVDA and SBO admitted for evaluation and management of early small bowel obstruction vs colitis. --CT Abdomen: suspicious for IBD; possibly Crohn's vs ulcerative colitis; early borderline mechanical small intestinal obstruction in posterior left abdomen. An umbilical and infraumbilical small ventral hernias containing fat. S/P Cholecystectomy. Plan: >Early SBO/Colitis/ Inflammatory Bowel disease --Afebrile, stable --Increased WBC; 15.6. --C/W: NPO, IV fluids: 20mEQ KCl-NS at 125 mL/hr. --C/WZofran 4mg IV PRN --C/W Toradol 15mg and 30mg for pain management. --General Surgery consult, Dr Barrios, Reccs appreciated. --C/W Empiric antibiotics: Ciprofloxacin IV and IV Metronidazole. --Monitor abdominal sounds, gases and abdominal distension. >Atrial Fibrillation --Pacemaker in place --Electrocardiogram ordered --Patient is on Warfarin and Plavix. --C/W holding PO medications for now. >Chronic Heart Failure --Last Echocardiogram 8 months ago, unremarkble results as per patient. --Hold PO medications. >Hx of heroin use --Patient is on [facility]. >Hepatitis C --Currently not on treatment. >Essential Hypertension --NPO. --PO medications are on hold. >DVT Prophylaxis --SCDs for now --Patient is on Warfarin and Plavix.
--- NOTE | 2018-09-24 10:18 | RAD ---
Date of service: 09/24/2018 HISTORY: SBO, F/U PO contrast from CT COMPARISON: None available. FINDINGS: BOWEL: Nonspecific bowel gas pattern. Enteric contrast not discretely visualized. BONES: Normal. OTHER FINDINGS: Right upper quadrant surgical clips.. IMPRESSION: Nonspecific bowel gas pattern. Enteric contrast not discretely visualized.
--- NOTE | 2018-09-24 11:24 | CT ---
Date of service: 09/23/2018 PROCEDURE: CT Abdomen and Pelvis with contrast HISTORY: abd pain COMPARISON: None. TECHNIQUE: Contrast dose: 90 mL Omnipaque 300 Radiation dose: Total exam DLP = 404.83 mGy-cm. This CT exam was performed using one or more of the following dose reduction techniques: Automated exposure control, adjustment of the mA and/or kV according to patient size, and/or use of iterative reconstruction technique. FINDINGS: LOWER THORAX: Cardiomegaly. Implanted cardiac device leads. LIVER: Hepatic steatosis. No gross lesion or ductal dilatation. GALLBLADDER AND BILE DUCTS: Prior cholecystectomy with surgical clips in place. PANCREAS: Unremarkable. No gross lesion or ductal dilatation. SPLEEN: Unremarkable. ADRENALS: Unremarkable. No mass. KIDNEYS AND URETERS: Unremarkable. No hydronephrosis. No solid mass. VASCULATURE: Unremarkable. No aortic aneurysm. No aortic atherosclerotic calcification or mural plaque present. BOWEL: Prominently distended small-bowel loops without discrete dilatation and long segment fecalization of small bowel contents with transition in the right lower quadrant (series 3, image 118). No gross mural thickening. APPENDIX: Normal appendix. PERITONEUM: Small fat containing supraumbilical hernia. No free fluid. No free air. LYMPH NODES: Unremarkable. No enlarged lymph nodes. BLADDER: Unremarkable. REPRODUCTIVE: Unremarkable. BONES: No acute fracture. OTHER FINDINGS: None. IMPRESSION: Distended small bowel loops with long segment fecalization of small bowel contents suspicious for developing small bowel obstruction. No discrete evidence for inflammatory bowel disease. Terminal ileum and colon are collapsed without evidence of wall thickening. Haustra markings cannot be discretely evaluated when bowel is collapsed. Additional findings as above.
--- NOTE | 2018-09-24 12:38 | RAD ---
Date of service: 09/24/2018 PROCEDURE: CHEST RADIOGRAPH, 1 VIEW HISTORY: rhonchi COMPARISON: 05/23/2016 FINDINGS: LUNGS: Clear. PLEURA: No pneumothorax or pleural fluid seen. CARDIOVASCULAR: No aortic atherosclerotic calcification present. Normal heart size. No congestive change. AICD noted. OSSEOUS STRUCTURES: No significant abnormalities. VISUALIZED UPPER ABDOMEN: Normal. OTHER FINDINGS: None. IMPRESSION: No active disease.
--- NOTE | 2018-09-24 14:24 | CP.PCM.DIS ---
Provider - Provider Date of Admission: 09/23/18 21:45 Attending physician: Velma Ayon DO Consults: 09/23/18 21:46 Surgery [General Surgery Consult] Stat Comment: Consulting Provider: Santhosh Barrios Consulting Physician: Santhosh Barrios Reason for Consult: bowel obstruction Time Spent in preparation of Discharge (in minutes): 30 Hospital Course - Lab Results Lab Results: Most Recent Lab Values WBC 15.6 K/uL (4.8-10.8) H 09/24/18 06:32 RBC 5.32 Mil/uL (3.80-5.20) H 09/24/18 06:32 Hgb 16.2 g/dL (12.0-16.0) H 09/24/18 06:32 Hct 51.9 % (34.0-47.0) H 09/24/18 06:32 MCV 97.5 fl (81.0-99.0) D 09/24/18 06:32 MCH 30.5 pg (27.0-31.0) 09/24/18 06:32 MCHC 31.3 g/dL (33.0-37.0) L 09/24/18 06:32 RDW 14.7 % (11.5-14.5) H 09/24/18 06:32 Plt Count 229 K/uL (130-400) 09/24/18 06:32 MPV 9.0 fl (7.2-11.7) 09/23/18 18:40 Neut % (Auto) 87.3 % (50.0-75.0) H 09/23/18 18:40 Lymph % (Auto) 8.3 % (20.0-40.0) L 09/23/18 18:40 [place] % (Auto) 3.9 % (0.0-10.0) 09/23/18 18:40 Eos % (Auto) 0.1 % (0.0-4.0) 09/23/18 18:40 Baso % (Auto) 0.4 % (0.0-2.0) 09/23/18 18:40 Neut # (Auto) 11.2 K/uL (1.8-7.0) H 09/23/18 18:40 Lymph # (Auto) 1.1 K/uL (1.0-4.3) 09/23/18 18:40 [place] # (Auto) 0.5 K/uL (0.0-0.8) 09/23/18 18:40 Eos # (Auto) 0.0 K/uL (0.0-0.7) 09/23/18 18:40 Baso # (Auto) 0.0 K/uL (0.0-0.2) 09/23/18 18:40 Neutrophils % (Manual) 85 % (42-75) H 09/23/18 18:40 Band Neutrophils % 3 % (0-2) H 09/23/18 18:40 Lymphocytes % (Manual) 7 % (20-50) L 09/23/18 18:40 Monocytes % (Manual) 5 % (0-10) 09/23/18 18:40 Platelet Estimate Normal (NORMAL) 09/23/18 18:40 Tear Drop Cells Slight 09/23/18 18:40 PT 25.4 Seconds (9.8-13.1) H 09/23/18 18:40 INR 2.2 09/23/18 18:40 APTT 49.4 Seconds (25.6-37.1) H 09/23/18 18:40 Sodium 142 mmol/l (132-148) 09/24/18 06:32 Potassium 4.9 MMOL/L (3.6-5.0) 09/24/18 06:32 Chloride 100 mmol/L (98-107) 09/24/18 06:32 Carbon Dioxide 29 mmol/L (22-30) 09/24/18 06:32 Anion Gap 18 (10-20) 09/24/18 06:32 BUN 18 mg/dl (7-17) H 09/24/18 06:32 Creatinine 0.9 mg/dl (0.7-1.2) 09/24/18 06:32 Est GFR ( Amer) > 60 09/24/18 06:32 Est GFR (Non-Af Amer) > 60 09/24/18 06:32 Random Glucose 90 mg/dL (65-105) 09/24/18 06:32 Calcium 9.2 mg/dL (8.4-10.2) 09/24/18 06:32 Phosphorus 4.6 mg/dl (2.5-4.5) H 09/24/18 06:32 Magnesium 2.0 MG/DL (1.6-2.3) 09/24/18 06:32 Total Bilirubin 0.8 mg/dl (0.2-1.3) 09/24/18 06:32 AST 26 U/L (14-36) 09/24/18 06:32 ALT 15 U/L (9-52) 09/24/18 06:32 Alkaline Phosphatase 114 U/L (38-126) 09/24/18 06:32 Total Protein 8.2 G/DL (6.3-8.2) 09/24/18 06:32 Albumin 4.1 g/dL (3.5-5.0) 09/24/18 06:32 Globulin 4.1 gm/dL (2.2-3.9) H 09/24/18 06:32 Albumin/Globulin Ratio 1.0 (1.0-2.1) 09/24/18 06:32 Lipase 50 U/L (23-300) 09/23/18 18:40 - Hospital Course Hospital Course: 47 y/o F with a PMHx of HTN, Atrial Fibrillation on Warfarin and Plavix, CHF, hepatitis C, IVDA and SBO admitted for evaluation and management of early small bowel obstruction vs colitis. Patient was NPO advanced to liquid diet today. Patient tolerated the diet well with no N or V. Patient was on Ondansetron, Pain meds, famotedine and ciprofloxacin. During her hospital stay patient didn't have any complications. Patient discharged home and [facility]. Assessment: 47 y/o F with a PMHx of HTN, Atrial Fibrillation on Warfarin and Plavix, CHF, hepatitis C, IVDA and SBO admitted for evaluation and management of early small bowel obstruction vs colitis. --CT Abdomen: suspicious for IBD; possibly Crohn's vs ulcerative colitis; early borderline mechanical small intestinal obstruction in posterior left abdomen. An umbilical and infraumbilical small ventral hernias containing fat. S/P Cholecystectomy. Plan: >Early SBO/Colitis/ Inflammatory Bowel disease --Afebrile, stable --Tolerated liquid diet with no N or V. --Passed gas after enema done for her today. --CT Abdomen: suspicious for IBD; possibly Crohn's vs ulcerative colitis; early borderline mechanical small intestinal obstruction in posterior left abdomen. An umbilical and infraumbilical small ventral hernias containing fat. S/P Cholecystectomy. --C/W liquid diet today and advance o regular diet tomorrow if the patient continue to tolerate it. --Patient to follow up in the [facility] (10/04/2018). --Patient to apply for Annette care in the main floor of the [facility]. Discharge Exam - Head Exam Head Exam: ATRAUMATIC, NORMOCEPHALIC - Eye Exam Eye Exam: EOMI, Normal appearance, PERRL Pupil Exam: NORMAL ACCOMODATION, PERRL - Neck Exam Neck exam: Full Rom, Normal Inspection - Respiratory Exam Respiratory Exam: Clear to PA & Lateral, NORMAL BREATHING PATTERN, UNREMARKABLE - Cardiovascular Exam Cardiovascular Exam: REGULAR RHYTHM, +S1, +S2 - GI/Abdominal Exam GI & Abdominal Exam: Hypoactive Bowel Sounds, Soft, Unremarkable - Extremities Exam Extremities exam: normal capillary refill - Back Exam Back exam: NORMAL INSPECTION - Neurological Exam Neurological exam: Alert, Oriented x3 - Psychiatric Exam Psychiatric exam: Normal Affect, Normal Mood - Skin Skin Exam: Dry, Intact, Normal Color, Warm Discharge Plan - Follow Up Plan Condition: STABLE Disposition: HOME/ ROUTINE Instructions: Small Bowel Obstruction (DC) Additional Instructions: Follow up at the [facility] on 10/03/18 at 3:40 PM. Return to ED if symptoms return. Referrals: [facility] [Outside]
[2018-09-24 16:45] VITALS: BP 120/79; PULSE 90; RESP 20; TEMP 98.3; O2SAT 94
== END 2018-09-24 18:45 | disposition home or self-care (01) | DRG 389 ==
LOC: H.ER 17:24 → H.ERHOLD 21:45 → H.MEDSURG1 09-24 00:21
PROVIDERS: ADMIT Student in an Organized Health Care Education/Training Program; ATTEND Student in an Organized Health Care Education/Training Program
DX: K56.600 Partial intestinal obstruction, unspecified as to cause (principal); F11.20 Opioid dependence, uncomplicated; I48.91 Unspecified atrial fibrillation; I11.0 Hypertensive heart disease with heart failure; I50.9 Heart failure, unspecified; J44.9 Chronic obstructive pulmonary disease, unspecified; F32.9 Major depressive disorder, single episode, unspecified; F17.210 Nicotine dependence, cigarettes, uncomplicated; Z95.0 Presence of cardiac pacemaker; Z79.01 Long term (current) use of anticoagulants; K52.9 Noninfective gastroenteritis and colitis, unspecified